=== PATIENT | female | born 1945 | race Caucasian/White ===

== ENCOUNTER 2023-10-09 07:44 | Day surgery (SDC) | payer MEDICARE ==
[2023-10-09] MEDS ORDERED: Depo-Medrol 40 MG/ML IM ONE (07:45)
[2023-10-09] MEDS ORDERED: Sodium Chloride 0.9(Preservative Free) 10 ML IJ ONE (07:45)
[2023-10-09] MEDS ORDERED: XYLOCAINE-MPF 1% 5ML SDV IJ ONE (07:45)
[2023-10-09] MEDS ORDERED: DIPRIVAN 200 MG/20 ML IV ONE (09:36)
[2023-10-09] MEDS ORDERED: MORPHINE SULFATE 2 MG INJ ONE (09:53)
[2023-10-09] MEDS ORDERED: Lactated Ringers 1,000 ML IV ONE (11:17)
--- NOTE | 2023-10-09 12:15 | XRAY ---
Indication: Lumbar LAVELLE. Intraoperative fluoroscopy provided for 11 seconds. 2 digital spot image submitted for interpretation demonstrates posterior needle tip projecting posterior to lumbosacral junction. Small amount of contrast injected for needle tip placement. Correlate with intraoperative findings/report.
--- NOTE | 2023-10-09 12:21 | XRAY ---
11 seconds of fluoroscopy was used in surgery for a lumbar LAVELLE.
== END 2023-10-09 10:14 | disposition home or self-care (01) ==
LOC: SDC-PAIN 07:44
PROVIDERS: ATTEND Psychiatry & Neurology Pain Medicine
DX: M54.16 Radiculopathy, lumbar region (principal)
CPT/HCPCS: 62323; 72100; 77003; J1030; J2270; J2704; Q9966

== ENCOUNTER 2024-05-28 11:04 | Day surgery (SDC) | payer MEDICARE ==
[2024-05-28] MEDS ORDERED: Sodium Chloride 0.9(Preservative Free) 10 ML IJ ONE (11:05)
[2024-05-28] MEDS ORDERED: BUPIVACAINE 0.5% VIAL IJ ONE (11:05)
[2024-05-28] MEDS ORDERED: Decadron 4 MG INJ IV ONE (11:05)
[2024-05-28] MEDS ORDERED: Depo-Medrol 40 MG/ML IM ONE (11:05)
[2024-05-28] MEDS ORDERED: DIPRIVAN 200 MG/20 ML IV ONE (13:08)
[2024-05-28] MEDS ORDERED: Lactated Ringers 1,000 ML IV ONE (13:25)
--- NOTE | 2024-05-28 13:53 | XRAY ---
Indication: Right L4-S1 transforaminal LAVELLE. Intraoperative fluoroscopy provided for 44 seconds. 6 digital spot image submitted for interpretation demonstrates posterior needle tips projecting over the right L4 and L5 nerve roots. Small amount of contrast injected for needle tip placement. Correlate with intraoperative findings/report.
--- NOTE | 2024-05-28 13:55 | XRAY ---
44 seconds of fluoroscopy was used in surgery for a right L4-S1 transforaminal LAVELLE.
--- NOTE | 2024-05-28 13:56 | XRAY ---
12 seconds of fluoroscopy was used in surgery for a bilateral greater trochanteric bursa injection.
--- NOTE | 2024-05-28 13:56 | XRAY ---
Indication: Bilateral greater trochanter bursa injection. Intraoperative fluoroscopy provided for 12 seconds. 2 digital spot image submitted for interpretation demonstrates needle tips projecting lateral to the left and right greater trochanters. Small amount of contrast injected for both needle tip placement. Correlate with intraoperative findings/report.
== END 2024-05-28 13:45 | disposition home or self-care (01) ==
LOC: SDC-PAIN 11:04
PROVIDERS: ATTEND Psychiatry & Neurology Pain Medicine
DX: M54.16 Radiculopathy, lumbar region (principal); M70.62 Trochanteric bursitis, left hip; M70.61 Trochanteric bursitis, right hip
CPT/HCPCS: 20610; 64483; 64484; 72100; 73521; 77002; 77003; J1100; J2704; Q9966

== ENCOUNTER 2024-06-24 07:37 | Day surgery (SDC) | payer MEDICARE ==
[2024-06-24] MEDS ORDERED: Depo-Medrol 40 MG/ML IM ONE (07:38)
[2024-06-24] MEDS ORDERED: BUPIVACAINE 0.5% VIAL IJ ONE (07:38)
[2024-06-24] MEDS ORDERED: DIPRIVAN 200 MG/20 ML IV ONE (09:26)
[2024-06-24] MEDS ORDERED: Lactated Ringers 1,000 ML IV ONE (09:51)
--- NOTE | 2024-06-24 11:42 | XRAY ---
Indication: Bilateral hip and greater trochanter bursa injection. Intraoperative fluoroscopy provided 29 seconds. 5 digital spot image submitted for interpretation demonstrates needle tips projecting lateral to left/right femur necks and left/right greater trochanters. Small amount of contrast injected for all needle tip placement. Correlate with intraoperative findings/report.
--- NOTE | 2024-06-24 13:09 | XRAY ---
29 seconds of fluoroscopy was used in surgery for a bilateral intra-articular hip and greater trochanteric bursa injection.
== END 2024-06-24 09:55 | disposition home or self-care (01) ==
LOC: SDC-PAIN 07:37
PROVIDERS: ATTEND Psychiatry & Neurology Pain Medicine
DX: M16.0 Bilateral primary osteoarthritis of hip (principal); M70.62 Trochanteric bursitis, left hip; M70.61 Trochanteric bursitis, right hip
CPT/HCPCS: 20610; 73522; 77002; J2704; Q9966

== ENCOUNTER 2025-07-07 08:43 | Day surgery (SDC) | payer MEDICARE ==
[2025-07-07] MEDS ORDERED: Sodium Chloride 0.9(Preservative Free) 10 ML IJ ONE (08:44)
[2025-07-07] MEDS ORDERED: methylPREDNISolone acetate IM ONE (08:44)
[2025-07-07] MEDS ORDERED: propofoL IV ONE (10:22)
[2025-07-07] MEDS ORDERED: Lactated Ringers 1,000 ML IV ONE (12:43)
--- NOTE | 2025-07-07 19:27 | XRAY ---
Indication: Caudal LAVELLE. Intraoperative fluoroscopy provided for 13 seconds. 2 digital spot image submitted for interpretation demonstrates caudal needle tip projecting mid sacrum. Small amount of contrast injected for needle tip placement. Correlate with intraoperative findings/report.
--- NOTE | 2025-07-07 19:37 | XRAY ---
13 seconds of fluoroscopy was used in surgery for a caudal LAVELLE.
== END 2025-07-07 10:50 | disposition home or self-care (01) ==
LOC: SDC-PAIN 08:43
PROVIDERS: ATTEND Psychiatry & Neurology Pain Medicine
DX: M54.16 Radiculopathy, lumbar region (principal)